=== PATIENT | male | born 1960 | race Caucasian/White ===

== ENCOUNTER → 2019-01-16 | Outpatient (CLI) | payer BC ==
--- NOTE | 2019-01-16 14:30 | PCVCIMAG ---
APPROVED REPORT Study performed: 01/16/2019 13:36:24 Exam: Stress Echocardiogram Indication: Hypertension, chest pain Patient Location: Echo lab Stress Nurse: Stefanie Foster RN Status: routine Ht: 5 ft 11 in HR: 96 bpm BP: 140/80 mmHg Rhythm: NSR Medical History Medical History: HTN Cardiac Risk Factors: HTN Exercise History: Sedentary Procedure The patient underwent an Exercise Stress Test using the Ronald Protocol. Blood pressure, heart rate, and EKG were monitored. An Echocardiogram was performed by monogram technician in four stages in quad fashion. At peak stress, four selected images were obtained and placed side by side with resting images for comparison. Stress Test Details Stress Test: Exercise stress testing was performed using a Ronald protocol. HR Resting HR: 96 bpmMax Heart Rate (APMHR): 163 bpm Max HR Achieved: 162 bpmTarget HR (85% APMHR): 138 bpm % of APMHR: 99 Recovery HR: 105 bpm HR response to stress: Normal HR response to stress BP Resting BP: 140/80 mmHg Max BP: 200/78 mmHg Recovery BP: 152/74 mmHg BP response to stress: Normal blood pressure response to stress. ECG Resting ECG: Sinus Rhythm Stress ECG: Sinus Rhythm ST Change: Normal Maximum ST Deviation: 0 mm Arrhythmia: VPC Recovery ECG: Sinus Rhythm Recovery ST Change: Normal Recovery ST Deviation: 0 mm Recovery Arrhythmia: None Clinical Reason for Termination: Maximal effort Exercise duration: 9 min sec Highest Stage Achieved: Stage 3: 3.4 mph at 14% grade. Exercise capacity: 10.40 METs Overall Exercise Capacity for Age: Normal Angina Score: None Stress ECG Conclusion Clinical: Non-ischemic ECG: Non-ischemic Marrero Treadmill Score is 9.0 which is Low risk. Pre-Stress Echo The resting Echocardiogram showed normal left ventricular contractility with an estimated Ejection Fraction of about 55-60%. Normal wall motion in all segments on baseline images. Post-Stress Echo The stress Echocardiogram showed normal left ventricular contractility with an estimated Ejection Fraction of about 60-65%. Normal augmentation of wall motion in all segments on post stress images. Clinical No clinical or ECG evidence for ischemia. Conclusion Clinical Response: Non-ischemic Exercise Capacity: Average Stress ECG Response: Non-ischemic Stress Echo Images: Non-ischemic The left ventricle is normal in size and wall thickness in both the rest and stress images. Normal stress echocardiogram with maximal exercise stress. <Conclusion> The left ventricle is normal in size and wall thickness in both the rest and stress images. Normal stress echocardiogram with maximal exercise stress.
== END | disposition home or self-care (01) ==
LOC: PCVCIMAG 13:09
PROVIDERS: ATTEND Family Medicine
DX: I10 Essential (primary) hypertension (principal); R07.9 Chest pain, unspecified
CPT/HCPCS: 93325; 93351